=== PATIENT | female | born 1995 | race Caucasian/White ===

== ENCOUNTER 2016-07-30 14:22 | Emergency (ER) | payer BC ==
[2016-07-30 14:45] VITALS: BP 114/82
--- NOTE | 2016-07-30 15:24 | UC ---
FLU HPI - HPI Summary HPI Summary: 2d subjective fevers, chills, headache, bad body aches, congestion, dry cough, ST. No history of asthma. College student, flu epidemic on campus. No flu shot - History of Current Complaint Chief Complaint: UCGeneralIllness Stated Complaint: THROAT Time Seen by Provider: 07/30/16 14:54 Hx Obtained From: Patient Hx Last Menstrual Period: 07/29/16 Onset/Duration: Gradual Onset Severity Currently: Moderate Severity Initially: Moderate Associated Signs & Symptoms: Positive: Fever, Myalgia, Cough, Sore Throat, Nasal Congestion, Headache, Vomiting - with cough Related Hx: Possible Flu/Infectious Exposure - Risk Factors Influenza Risk Factors: Negative - Allergy/Home Medications Allergies/Adverse Reactions: Allergies Allergy/AdvReac Type Severity Reaction Status Date / Time Azithromycin [From Z-Gerard] Allergy Severe SOB AND Verified 07/30/16 14:45 ITICHING Cefprozil [From Cefzil] Allergy Severe TROUBLE Verified 07/30/16 14:45 BREATHING Penicillins Allergy Unknown Unknown Verified 07/30/16 14:45 Reaction Details PMH/Surg Hx/FS Hx/Imm Hx Previously Healthy: Yes - Surgical History Surgical History: Yes Surgery Procedure, Year, and Place: right shoulder - Family History Known Family History: Positive: Hypertension, Respiratory Disease - Social History Occupation: Student Lives: With Family Alcohol Use: Occasionally Substance Use Type: None Smoking Status (MU): Never Smoked Tobacco - Immunization History Most Recent Influenza Vaccination: none Review of Systems Constitutional: Fever, Chills, Fatigue Skin: Negative Eyes: Negative ENT: Sore Throat, Nasal Discharge Respiratory: Cough Cardiovascular: Negative Gastrointestinal: Negative Genitourinary: Negative Motor: Negative Neurovascular: Negative Musculoskeletal: Myalgia Neurological: Headache Psychological: Negative All Other Systems Reviewed And Are Negative: Yes Physical Exam Triage Information Reviewed: Yes Appearance: Well-Appearing, No Pain Distress, Well-Nourished Vital Signs: Initial Vital Signs Temp 99.1 F 07/30/16 14:41 Pulse 113 07/30/16 14:41 Resp 17 07/30/16 14:41 BP 114/82 07/30/16 14:41 Pulse Ox 97 07/30/16 14:41 Vital Signs Reviewed: Yes Eye Exam: Normal Eyes: Positive: Conjunctiva Clear ENT: Positive: Hearing grossly normal, Pharyngeal erythema, Nasal congestion, Nasal drainage, TMs normal, Muffled/hoarse voice - hoarse. Negative: Tonsillar swelling, Tonsillar exudate, Trismus Neck exam: Normal Neck: Positive: Supple Respiratory Exam: Normal Respiratory: Positive: Lungs clear, Normal breath sounds, No respiratory distress, No accessory muscle use Cardiovascular Exam: Normal Musculoskeletal Exam: Normal Neurological Exam: Normal Psychological Exam: Normal Skin Exam: Normal Diagnostics - Laboratory Diagnostic Studies Completed/Ordered: Strep neg Flu Course/Dx - Differential Dx/Diagnosis Differential Diagnosis/HQI/PQRI: Influenza, Upper Respiratory Infection Provider Diagnoses: influenza Discharge - Discharge Plan Condition: Stable Disposition: HOME Prescriptions: Guaifenesin-Codeine [Cheratussin AC] 1 - 2 teasp PO Q6HR PRN #120 ml MDD 30ml PRN Reason: cough or sore throat Pseudoephedrine HCl [Sudafed 12 Hour] 120 mg PO BID PRN #20 tab PRN Reason: Congestion Patient Education Materials: Influenza (ED) Forms: *School Release Referrals: Non Staff,Doctor [Primary Care Provider] -
== END 2016-07-30 15:35 | disposition home or self-care (01) ==
LOC: UCCORT 14:22
DX: J11.1 Influenza due to unidentified influenza virus with other respiratory manifestations (principal); Z88.0 Allergy status to penicillin; Z88.1 Allergy status to other antibiotic agents
CPT/HCPCS: 87651; 99212; G0463

== ENCOUNTER 2016-10-24 09:44 | Emergency (ER) | payer BC ==
[2016-10-24 12:06] VITALS: BP 129/83
--- NOTE | 2016-10-24 12:23 | UC ---
Skin Complaint HPI - HPI Summary HPI Summary: patient has reoccuring hives that come and go, does not know what is causeing them, last for about 30-40 minutes. denies any known allergen, denies any anxiety, happens on legs and arms, currently not presnet - History of Current Complaint Chief Complaint: UCSkin Time Seen by Provider: 10/24/16 12:09 Stated Complaint: SKIN COMPLAINT Hx Obtained From: Patient Hx Last Menstrual Period: 09/30/16 Onset/Duration: Sudden Onset, Lasting Minutes Skin Exposure Onset/Duration: Days Ago Timing: Intermittent Episodes Lasting: - 30-40 min Location: Generalized Character: Swelling, Pruritus, Hives Aggravating: Nothing Alleviating: Nothing - Allergy/Home Medications Allergies/Adverse Reactions: Allergies Allergy/AdvReac Type Severity Reaction Status Date / Time Azithromycin [From Z-Gerard] Allergy Severe SOB AND Verified 10/24/16 12:06 ITICHING Cefprozil [From Cefzil] Allergy Severe TROUBLE Verified 10/24/16 12:06 BREATHING Penicillins Allergy Unknown Unknown Verified 10/24/16 12:06 Reaction Details Review of Systems Constitutional: Negative Skin: Rash Eyes: Negative ENT: Negative Respiratory: Negative Cardiovascular: Negative Gastrointestinal: Negative Genitourinary: Negative Motor: Negative Neurovascular: Negative Musculoskeletal: Negative Neurological: Negative Psychological: Negative All Other Systems Reviewed And Are Negative: Yes PMH/Surg Hx/FS Hx/Imm Hx Previously Healthy: Yes - Surgical History Surgical History: Yes Surgery Procedure, Year, and Place: right shoulder - Family History Known Family History: Positive: Hypertension, Respiratory Disease - Social History Alcohol Use: Occasionally Substance Use Type: None Smoking Status (MU): Never Smoked Tobacco - Immunization History Most Recent Influenza Vaccination: none Physical Exam Triage Information Reviewed: Yes Appearance: Well-Appearing, No Pain Distress, Well-Nourished Vital Signs: Initial Vital Signs Temp 98.4 F 10/24/16 12:01 Pulse 67 10/24/16 12:01 Resp 16 10/24/16 12:01 BP 129/83 10/24/16 12:01 Pulse Ox 100 10/24/16 12:01 Vital Signs Reviewed: Yes Eye Exam: Normal Eyes: Positive: Conjunctiva Clear ENT: Positive: Hearing grossly normal, Pharynx normal, TMs normal Dental Exam: Normal Neck exam: Normal Neck: Positive: Supple, Nontender, No Lymphadenopathy Respiratory Exam: Normal Respiratory: Positive: Chest non-tender, Lungs clear, Normal breath sounds Cardiovascular Exam: Normal Cardiovascular: Positive: RRR, No Murmur, Pulses Normal Abdominal Exam: Normal Abdomen Description: Positive: Nontender, No Organomegaly, Soft Bowel Sounds: Positive: Present Musculoskeletal Exam: Normal Musculoskeletal: Positive: Strength Intact, ROM Intact, No Edema Neurological Exam: Normal Neurological: Positive: Alert, Muscle Tone Normal Psychological Exam: Normal Skin: Positive: Other - patient has fair skin, currently no rash present. patient did bring a picture of the last outbreak on the leg and picture consistant with urticaria Course/Dx - Course Course Of Treatment: hx obtained, exam performed, meds reviewed, treated for hives. referral to morning nanny given - Differential Diagnoses - Skin Complaint Differential Diagnoses: Allergic Reaction, Local Allergic Reaction, Poison Marlene, Poison [place], [place], Urticaria - Diagnoses Provider Diagnoses: uritcaria Discharge - Discharge Plan Condition: Stable Disposition: HOME Prescriptions: predniSONE TAB* [Deltasone TAB*] 20 mg PO DAILY #18 tab Patient Education Materials: Urticaria (ED) Referrals: Non Staff,Doctor [Primary Care Provider] - Additional Instructions: 1. take the medication as prescribed. 2. benadryl and hydrocortisone for itching. 3. cool showers or compresses to relieve symtpoms 4. follow up for allergy testing if hives continue [facility] [address], [place] [id number]
== END 2016-10-24 12:30 | disposition home or self-care (01) ==
LOC: UCCORT 09:44
DX: L50.9 Urticaria, unspecified (principal); Z88.1 Allergy status to other antibiotic agents; Z88.0 Allergy status to penicillin
CPT/HCPCS: 99212; G0463